=== PATIENT | female | born 1990 | race Caucasian/White ===

== ENCOUNTER 2021-10-29 19:35 | Observation (INO) | payer OTHER ==
[2021-10-29] MEDS ORDERED: MORPHINE SULFATE 10 MG/ML VIAL IM ONE (20:45)
[2021-10-29 21:09] LABS: BASOPHILS % (AUTO) 0.2 % (0.0-2.0); EOSINOPHILS % (AUTO) 0.4 % (0.0-4.0); HEMATOCRIT 38.7 % (36-48); HEMOGLOBIN 12.7 g/dL (12.0-16.0); LYMPHOCYTES % (AUTO) 10.8 % (20.5-51.5); MEAN CORPUSCULAR HEMOGLOBIN 26 pg (27-31); MEAN CORPUSCULAR HGB CONC 33 % (32-36); MEAN CORPUSCULAR VOLUME 79 fL (79.0-98.0); MONOCYTES # (AUTO) 0.3 K/uL (0.0-1.0); MONOCYTES % (AUTO) 3.3 % (1.7-9.3); NEUTROPHILS # (AUTO) 7.9 K/uL (1.8-7.7); NEUTROPHILS % (AUTO) 85.3 % (40.0-70.0); PLATELET COUNT (AUTO) 294 K/uL (130-430); RED BLOOD CELL COUNT(AUTO) 4.92 MIL/uL (4.2-6.2); WHITE BLOOD COUNT (AUTO) 9.3 K/uL (4.8-10.8)
[2021-10-29 21:23] LABS: CALCIUM 7.7 mg/dL (8.4-11.0); CREATININE 0.51 mg/dL (0.55-1.30); POTASSIUM 4.1 mmol/L (3.5-5.1)
[2021-10-29 21:28] LABS: ALBUMIN 2.8 g/dL (3.4-4.8); TOTAL BILIRUBIN 0.3 mg/dL (0.0-1.0)
[2021-10-29 22:50] LABS: BILIRUBIN,URINE NEGATIVE (NEGATIVE); BLOOD, URINE NEGATIVE (NEGATIVE); CLARITY/URINE CLEAR (CLEAR); GLUCOSE,URINE NEGATIVE (NEGATIVE); KETONES,URINE NEGATIVE (NEGATIVE); LEUKOCYTE ESTERASE ,URINE NEGATIVE (NEGATIVE); NITRITE, URINE NEGATIVE (NEGATIVE); PH,URINE 5.5 (5.0-8.0); PROTEIN URINE NEGATIVE (NEGATIVE); UROBILINOGEN,URINE 0.2 (0.2-1.0)
[2021-10-29 23:10] LABS: COLOR,URINE STRAW (YELLOW)
== END 2021-10-30 01:55 | disposition home or self-care (01) ==
LOC: SPU 19:35
PROVIDERS: ADMIT Specialist; ATTEND Specialist
DX: O26.893 Other specified pregnancy related conditions, third trimester (principal); R10.30 Lower abdominal pain, unspecified; O36.8130 Decreased fetal movements, third trimester, not applicable or unspecified; Z3A.34 34 weeks gestation of pregnancy
CPT/HCPCS: 36415; 76805; 80053; 81002; 81003; 82962; 85025; 96372; G0378 ×2; J2270

== ENCOUNTER 2021-11-08 10:14 | Observation (INO) | payer OTHER ==
[~2021-11-08] VITALS: Ht 167.6 cm; Wt 107.0 kg
== END 2021-11-08 11:40 | disposition home or self-care (01) ==
LOC: SPU 10:14
PROVIDERS: ADMIT Specialist; ATTEND Specialist
DX: Z34.83 Encounter for supervision of other normal pregnancy, third trimester (principal); Z3A.36 36 weeks gestation of pregnancy
CPT/HCPCS: 59025; G0378

== ENCOUNTER 2021-11-19 04:15 | Inpatient (IN) | payer OTHER, SELFPAY ==
[~2021-11-19] VITALS: Ht 167.6 cm; Wt 110.2 kg
[2021-11-19] MEDS ORDERED: TERBUTALINE SULFATE 1 MG/ML VIAL SUBCUT ONE (04:30)
[2021-11-19] MEDS ORDERED: NALBUPHINE HCL 10 MG/ML AMP IVP PRN (04:30)
[2021-11-19] MEDS ORDERED: OXYTOCIN/0.9 % SODIUM CHLORIDE 1,000 ML IV SCH (04:30)
[2021-11-19 04:45] VITALS: BP_SYST 139
[2021-11-19] MEDS: LR 1,000 ML IV SCH ×2 (05:00→22:30)
[2021-11-19 07:25] LABS: BASOPHILS % (AUTO) 0.4 % (0.0-2.0); EOSINOPHILS # (AUTO) 0.1 K/uL (0.0-0.4); EOSINOPHILS % (AUTO) 0.9 % (0.0-4.0); HEMATOCRIT 35.6 % (36-48); HEMOGLOBIN 11.7 g/dL (12.0-16.0); LYMPHOCYTES # (AUTO) 2.2 K/uL (1.0-5.5); LYMPHOCYTES % (AUTO) 27.1 % (20.5-51.5); MEAN CORPUSCULAR HEMOGLOBIN 26 pg (27-31); MEAN CORPUSCULAR HGB CONC 33 % (32-36); MEAN CORPUSCULAR VOLUME 79 fL (79.0-98.0); MONOCYTES # (AUTO) 0.4 K/uL (0.0-1.0); MONOCYTES % (AUTO) 5.4 % (1.7-9.3); NEUTROPHILS # (AUTO) 5.4 K/uL (1.8-7.7); NEUTROPHILS % (AUTO) 66.2 % (40.0-70.0); PLATELET COUNT (AUTO) 271 K/uL (130-430); RED BLOOD CELL COUNT(AUTO) 4.52 MIL/uL (4.2-6.2); WHITE BLOOD COUNT (AUTO) 8.2 K/uL (4.8-10.8)
[2021-11-19] MEDS ORDERED: ePHEDrine sulfate 50 MG/ML VIAL IVP PRN (07:39)
[2021-11-19] MEDS ORDERED: ROPIVACAINE HCL/PF 0.2% 200 ML ONE ×2 (07:39→22:01)
[2021-11-19] MEDS ORDERED: LR 500 ML IV ONE (07:39)
[2021-11-19] MEDS ORDERED: fentaNYL CITRATE/PF 100 MCG/2 ML AMP ONE (07:39)
[2021-11-19] MEDS ORDERED: FENT2mCg/mL-ROPIVA0.2%/NS EPID 200 ML EP SCH (07:39)
[2021-11-19] MEDS ORDERED: D5LR 1,000 ML IV PRN (14:00)
[2021-11-19] MEDS ORDERED: ACETAMINOPHEN 325 MG TABLET PO PRN (20:00)
[2021-11-19] MEDS ORDERED: LIDOCAINE PF 1% 30ML(POUR BTL) INJ ONE (21:58)
[2021-11-19] MEDS ORDERED: LIGHT MINERAL OIL 10 ML VIAL MC ONE (21:58)
[2021-11-20] MEDS ORDERED: METHYLERGONOVINE MALEATE 0.2 MG TABLET PO PRN (02:45)
[2021-11-20] MEDS ORDERED: HYDROCORTISONE 0.5% CREAM 28.4 GM CREAM.GM. TP PRN (02:45)
[2021-11-20] MEDS ORDERED: NALOXONE HCL 0.4 MG/ML AMP (NARCAN) IVP PRN (02:45)
[2021-11-20] MEDS ORDERED: WITCH HAZEL LEAF 1 MED.PAD MED.PAD TP PRN (02:45)
[2021-11-20] MEDS ORDERED: MEASLES,MUMPS&RUBELLA VACC/PF 12500 UNIT/0.5 ML VIAL SUBQ PRN (02:45)
[2021-11-20] MEDS ORDERED: OXYTOCIN/0.9 % SODIUM CHLORIDE 1,000 ML IV SCH (02:45)
[2021-11-20] MEDS ORDERED: LANOLIN 7 GM OINT. TP PRN (02:45)
[2021-11-20] MEDS ORDERED: HYDROcodone/ACETAMIN 5-325 MG TAB (NORCO/ VICODIN) PO PRN (02:45)
[2021-11-20] MEDS ORDERED: RHO(D) IMMUNE GLOBULIN/MALTOSE 1500 UNITS/1.3 ML (WINHRO) IM PRN (02:45)
[2021-11-20] MEDS ORDERED: DIPH-TET-PERTUS Vaccine 0.5 ML VIAL (ADACEL) I.M. PRN (02:45)
[2021-11-20] MEDS ORDERED: DERMOPLAST SPRAY TP PRN (02:45)
[2021-11-20] MEDS ORDERED: OXYTOCIN/0.9 % SODIUM CHLORIDE 1,000 ML IV ONE (02:45)
[2021-11-20] MEDS ORDERED: OXYCODONE/ACETAMINOPHEN 5-325 TABLET PO PRN (02:45)
[2021-11-20] MEDS ORDERED: ANUSOL 1 EA SUPP.RECT (PREPARATION H) RC PRN (02:45)
[2021-11-20] MEDS: IBUPROFEN 600 MG TABLET PO SCH ×3 (06:07→18:03)
[2021-11-20] MEDS: DOCUSATE SODIUM 100 MG CAPSULE PO SCH (08:54)
[2021-11-20] MEDS: OXYCODONE/ACETAMINOPHEN 5-325 TABLET PO PRN ×2 (14:14→20:54)
[2021-11-20] MEDS: SENNOSIDES/DOCUSATE SODIUM 1 TAB TABLET(SENOKOT-S) PO SCH (20:13)
[2021-11-20] MEDS ORDERED: TEMAZEPAM 15 MG CAPSULE PO PRN (21:00)
[2021-11-21] MEDS: IBUPROFEN 600 MG TABLET PO SCH ×3 (00:17→18:07)
[2021-11-21] MEDS: metFORMIN HCL 500 MG TABLET PO SCH ×2 (05:52→19:05)
[2021-11-21 06:59] LABS: BASOPHILS % (AUTO) 0.5 % (0.0-2.0); EOSINOPHILS # (AUTO) 0.1 K/uL (0.0-0.4); EOSINOPHILS % (AUTO) 1.3 % (0.0-4.0); HEMATOCRIT 31.4 % (36-48); HEMOGLOBIN 10.3 g/dL (12.0-16.0); LYMPHOCYTES # (AUTO) 2.2 K/uL (1.0-5.5); LYMPHOCYTES % (AUTO) 32.5 % (20.5-51.5); MEAN CORPUSCULAR HEMOGLOBIN 26 pg (27-31); MEAN CORPUSCULAR HGB CONC 33 % (32-36); MEAN CORPUSCULAR VOLUME 79 fL (79.0-98.0); MONOCYTES # (AUTO) 0.4 K/uL (0.0-1.0); MONOCYTES % (AUTO) 5.9 % (1.7-9.3); NEUTROPHILS # (AUTO) 4.1 K/uL (1.8-7.7); NEUTROPHILS % (AUTO) 59.8 % (40.0-70.0); PLATELET COUNT (AUTO) 212 K/uL (130-430); RED BLOOD CELL COUNT(AUTO) 3.99 MIL/uL (4.2-6.2); RED CELL DISTRIBUTION WIDTH 16.3 % (9.0-15.0); WHITE BLOOD COUNT (AUTO) 6.9 K/uL (4.8-10.8)
[2021-11-21] MEDS ORDERED: metFORMIN HCL 500 MG TABLET PO SCH (08:00)
--- NOTE | 2021-11-21 16:37 | NUR ---
Dietitian Recommendations [facility] standard carb-60 gm, [address] gm protein LP, RD Please refer to Nutrition Assessment for details. Signed: 11/21/21 at 1638 by Magalis CHI <Co-Signature Required> Co-Signed: 11/21/21 at [address] Addendum: 11/21/21 at 1638 by Magalis CHI Amended: Links added.
[2021-11-21] MEDS: SENNOSIDES/DOCUSATE SODIUM 1 TAB TABLET(SENOKOT-S) PO SCH (19:49)
[2021-11-21] MEDS: OXYCODONE/ACETAMINOPHEN 5-325 TABLET PO PRN (19:51)
[2021-11-22] MEDS: IBUPROFEN 600 MG TABLET PO SCH ×4 (00:03→12:20)
[2021-11-22] MEDS: DOCUSATE SODIUM 100 MG CAPSULE PO SCH (08:33)
[2021-11-22] MEDS: metFORMIN HCL 500 MG TABLET PO SCH (10:43)
== END 2021-11-22 13:44 | disposition home or self-care (01) | DRG 805 ==
LOC: SPU 04:15
PROVIDERS: ADMIT Specialist; ATTEND Specialist
PROC: 10E0XZZ Delivery of Products of Conception, External Approach (ICD-10-PCS; principal; 2021-11-20)
PROC: 10907ZC Drainage of Amniotic Fluid, Therapeutic from Products of Conception, Via Natural or Artificial Opening (ICD-10-PCS; 2021-11-20)
PROC: 3E033VJ Introduction of Other Hormone into Peripheral Vein, Percutaneous Approach (ICD-10-PCS; 2021-11-20)
PROC: 3E0R3BZ Introduction of Anesthetic Agent into Spinal Canal, Percutaneous Approach (ICD-10-PCS; 2021-11-20)
PROC: 00HU33Z Insertion of Infusion Device into Spinal Canal, Percutaneous Approach (ICD-10-PCS; 2021-11-20)
DX: O41.03X0 Oligohydramnios, third trimester, not applicable or unspecified (principal); O24.12 Pre-existing type 2 diabetes mellitus, in childbirth; Z37.0 Single live birth; O16.4 Unspecified maternal hypertension, complicating childbirth; O12.14 Gestational proteinuria, complicating childbirth; Z20.822 Contact with and (suspected) exposure to COVID-19; O99.344 Other mental disorders complicating childbirth; F41.9 Anxiety disorder, unspecified; F32.A Depression, unspecified; Z3A.38 38 weeks gestation of pregnancy
CPT/HCPCS: 36415; 81002; 82947; 82962; 85025; 86592; 86886; 86900; 86901; 94760; J2001; J2300; J2590; J3010

== ENCOUNTER 2022-03-26 21:48 | Observation (INO) | payer OTHER, BC ==
[~2022-03-26] VITALS: Ht 167.6 cm; Wt 103.0 kg
[2022-03-26 22:40] VITALS: BP_SYST 130
[2022-03-26] MEDS ORDERED: NACL 0.9% 1,000 ML IV ONE (22:45)
--- NOTE | 2022-03-26 22:46 | NUR ---
PT FROM HOME W/ C/O SMITH, BODY ACHES, CHILLS AND FEVER OF 103 FOR 3 DAYS. PT TEMP 98.9 TEMPORAL. PT TOOK HOME COVID TEST AND REPORTS IT BEING NEGATIVE. PT TACHYCARDIAC IN THE 140S MD MADE AWARE.
--- NOTE | 2022-03-26 22:54 | NUR ---
Patient to ER bed 08 to gown for evaluation. Side rails up.
--- NOTE | 2022-03-26 22:55 | NUR ---
Received report from Orquidea CARR; assuming patient care at this time.
--- NOTE | 2022-03-26 22:56 | NUR ---
Patient presents to ER with c/o headaches, fever/chills, and bodyaches x3 days. Patient reports (-)rapid covid test done at home today. Patient A/Ox4, resp even and unlabored. Patient has elevated HR 138; ER MD Lou notified. Patient placed on mechanical engineering draftsperson, in bed with side rails raised. NAD noted at this time. Will continue to monitor.
--- NOTE | 2022-03-26 22:58 | NUR ---
Radiology at bedside.
--- NOTE | 2022-03-26 23:03 | NUR ---
BIB AMB WITH TRIAGE NURSE. C/O BODY ACHES, CHILLS ABD FEVER X3 DAYS. DENIES N/V/D.
--- NOTE | 2022-03-26 23:10 | NUR ---
# 20 gauge angiocath placed to Right Wrist. Use of asceptic technique. Opsite placed over site. Blood return noted. Blood for lab drawn from site. Flushed with 10 cc of normal saline. No evidence of infiltration noted. Patient tolerated well.
--- NOTE | 2022-03-26 23:15 | NUR ---
Specimens for COVID and Influenza antigens collected and sent to lab.
[2022-03-27] MEDS ORDERED: ACETAMINOPHEN 500 MG TABLET PO ONE
[2022-03-27] MEDS ORDERED: NACL 0.9% 1,000 ML IV ONE
[2022-03-27 00:01] LABS: ANION GAP 13 (5-15); CALCIUM 8.7 mg/dL (8.4-11.0); CHLORIDE 100 mmol/L (98-107); CREATININE 0.78 mg/dL (0.55-1.30); GLUCOSE 164 mg/dL (70-99); POTASSIUM 3.3 mmol/L (3.5-5.1); UREA NITROGEN, BLOOD 12 mg/dL (8-21)
[2022-03-27 00:08] LABS: GFR AFRICAN AMERICAN 110 mL/min (>90)
[2022-03-27 00:28] LABS: HEMATOCRIT 38.2 % (36-48); HEMOGLOBIN 13.4 g/dL (12.0-16.0); MEAN CORPUSCULAR HEMOGLOBIN 28 pg (27-31); MEAN CORPUSCULAR HGB CONC 35 % (32-36); MEAN CORPUSCULAR VOLUME 81 fL (79.0-98.0); RED BLOOD CELL COUNT(AUTO) 4.74 MIL/uL (4.2-6.2); WHITE BLOOD COUNT (AUTO) 3.7 K/uL (4.8-10.8)
[2022-03-27 00:29] LABS: BASOPHILS % (AUTO) 1.2 % (0.0-2.0); EOSINOPHILS % (AUTO) 0.5 % (0.0-4.0); LYMPHOCYTES # (AUTO) 1.2 K/uL (1.0-5.5); LYMPHOCYTES % (AUTO) 31.7 % (20.5-51.5); MONOCYTES # (AUTO) 0.2 K/uL (0.0-1.0); NEUTROPHILS # (AUTO) 2.2 K/uL (1.8-7.7); NEUTROPHILS % (AUTO) 60.6 % (40.0-70.0); PLATELET COUNT (AUTO) 197 K/uL (130-430); RED CELL DISTRIBUTION WIDTH 14.9 % (9.0-15.0)
[2022-03-27] MEDS ORDERED: cefTRIAXone 1 GM IVPB PREMIX 50 ML IV ONE (00:45)
[2022-03-27 00:48] LABS: BILIRUBIN,URINE NEGATIVE (NEGATIVE); BLOOD, URINE 1+ (NEGATIVE); CLARITY/URINE CLEAR (CLEAR); COLOR,URINE YELLOW (YELLOW); GLUCOSE,URINE NEGATIVE (NEGATIVE); KETONES,URINE NEGATIVE (NEGATIVE); LEUKOCYTE ESTERASE ,URINE NEGATIVE (NEGATIVE); NITRITE, URINE NEGATIVE (NEGATIVE); PROTEIN URINE NEGATIVE (NEGATIVE); UROBILINOGEN,URINE 0.2 (0.2-1.0)
[2022-03-27 01:35] LABS: ALANINE AMINOTRANSFERASE 124 U/L (12-78); ALBUMIN 3.7 g/dL (3.4-4.8); ASPARTATE AMINOTRANSFERASE 90 U/L (10-37); TOTAL BILIRUBIN 0.3 mg/dL (0.0-1.0)
[2022-03-27 01:53] LABS: ACETONE, SERUM NEGATIVE (NEGATIVE)
[2022-03-27] MEDS ORDERED: AZITHROMYCIN 500 MG in NS 250 ML IV ONE (02:00)
[2022-03-27] MEDS ORDERED: VANCOMYCIN HCL 1,000 MG in NS 250 ML IV ONE (02:00)
[2022-03-27] MEDS ORDERED: PIPERACILLIN/TAZO 3.375 GM in NS 50 ML IV ONE (02:00)
--- NOTE | 2022-03-27 02:27 | NUR ---
Admit bed requested Patient will be admitted to care of Hao Rodriguez Admitted to M/S unit. Diagnosis Fever of Unknown Origin Inpatient Yes Observation No Orientation concerns or request close to nursing station No Covid Status Neg On vent or bipap No Isolation requirements No Needs a sitter No From Home Yes Requires Dialysis No Med Rec Completed Yes
[2022-03-27] MEDS ORDERED: POTASSIUM CHLORIDE 20 MEQ/PKT PACKET PO ONE (02:30)
[2022-03-27] MEDS ORDERED: VANCOMYCIN HCL 1000 MG/VIAL IV ONE (02:32)
[2022-03-27] MEDS ORDERED: PIPERACILLIN/TAZOBACTAM 3.375 GM/VIAL (ZOSYN) IV ONE (02:33)
[2022-03-27] MEDS ORDERED: AZITHROMYCIN 500 MG/VIAL (ZITHROMAX) IV ONE (02:34)
[2022-03-27] MEDS ORDERED: METF-518 PO (02:56)
[2022-03-27] MEDS ORDERED: INSNLG7030 SUBCUT (02:57)
[2022-03-27] MEDS ORDERED: VITD2000 PO (03:00)
[2022-03-27 04:07] VITALS: BP_SYST 94
--- NOTE | 2022-03-27 04:10 | NUR ---
LILLY PONCE PT STABLE FOR ADMIT TO ROOM #109C. TO ROOM [facility] WITH RN. REPORT TO LILLY MAHAN
--- NOTE | 2022-03-27 05:34 | NUR ---
CONSULT: CONSULT CALLED FOR DR. MATT Hayes SPOKE TO ISABEL DUARTE REASON FOR CONSULT: FEVER OF UNKNOWN ORIGIN REQUESTING CONSULT: DR. TIERRA Bui HEAD OF MATHEMATICS PHONE NUMBER: [phone]
[2022-03-27 08:00] VITALS: BP_SYST 134
[2022-03-27] MEDS ORDERED: HYDROcodone/ACETAMIN 10-325 MG TAB PO PRN (10:30)
[2022-03-27] MEDS ORDERED: NALOXONE HCL 0.4 MG/ML AMP (NARCAN) IVP PRN ×2 (10:30)
[2022-03-27] MEDS ORDERED: HYDROcodone/ACETAMIN 5-325 MG TAB (NORCO/ VICODIN) PO PRN (10:30)
[2022-03-27] MEDS ORDERED: ACETAMINOPHEN 325 MG TABLET PO PRN (10:30)
[2022-03-27] MEDS ORDERED: ONDANSETRON HCL 4 MG/2 ML VIAL IVP PRN (10:30)
[2022-03-27] MEDS ORDERED: GLUCOSE (DEXTROSE) ORAL GEL -Adults PO PRN (11:00)
[2022-03-27] MEDS ORDERED: D5W 1,000 ML IV PRN (11:00)
[2022-03-27] MEDS ORDERED: LORazepam 1 MG TABLET PO PRN (11:00)
[2022-03-27] MEDS ORDERED: DEXTROSE 50%-WATER 50 ML DISP.SYRIN IVP PRN (11:00)
[2022-03-27 12:00] VITALS: BP_SYST 143
[2022-03-27] MEDS ORDERED: metFORMIN HCL 500 MG TABLET PO SCH (12:00)
[2022-03-27] MEDS: INSULIN REGULAR, HUMAN 100 UNITS/ML, 10 ML VIAL (humuLIN R) SUBCUT PRN ×3 (12:09→21:59)
[2022-03-27] MEDS ORDERED: NORMAL SALINE 5 ML DISP.SYRIN IVF SCH (14:00)
[2022-03-27] MEDS: NORMAL SALINE 5 ML DISP.SYRIN IVF SCH ×2 (14:51→22:10)
[2022-03-27 16:00] VITALS: BP_SYST 140
[2022-03-28] MEDS: INSULIN REGULAR, HUMAN 100 UNITS/ML, 10 ML VIAL (humuLIN R) SUBCUT PRN (06:36)
[2022-03-28 07:39] LABS: BASOPHILS % (AUTO) 0.7 % (0.0-2.0); HEMATOCRIT 37.1 % (36-48); HEMOGLOBIN 12.8 g/dL (12.0-16.0); LYMPHOCYTES # (AUTO) 1.3 K/uL (1.0-5.5); LYMPHOCYTES % (AUTO) 36.1 % (20.5-51.5); MEAN CORPUSCULAR HEMOGLOBIN 28 pg (27-31); MEAN CORPUSCULAR HGB CONC 35 % (32-36); MEAN CORPUSCULAR VOLUME 81 fL (79.0-98.0); MONOCYTES # (AUTO) 0.3 K/uL (0.0-1.0); MONOCYTES % (AUTO) 8.1 % (1.7-9.3); NEUTROPHILS # (AUTO) 1.9 K/uL (1.8-7.7); NEUTROPHILS % (AUTO) 54.1 % (40.0-70.0); PLATELET COUNT (AUTO) 191 K/uL (130-430); RED BLOOD CELL COUNT(AUTO) 4.59 MIL/uL (4.2-6.2); RED CELL DISTRIBUTION WIDTH 14.5 % (9.0-15.0); WHITE BLOOD COUNT (AUTO) 3.6 K/uL (4.8-10.8)
[2022-03-28 08:00] VITALS: BP_SYST 135
[2022-03-28] MEDS ORDERED: CHOLECALCIFEROL (VITAMIN D3) 2,000 UNIT TABLET PO SCH (09:00)
[2022-03-28 09:26] LABS: ALBUMIN 3.4 g/dL (3.4-4.8); CALCIUM 8.5 mg/dL (8.4-11.0); CREATININE 0.71 mg/dL (0.55-1.30); PHOSPHORUS 3.7 mg/dL (2.7-4.5); POTASSIUM 3.9 mmol/L (3.5-5.1); TOTAL BILIRUBIN 0.4 mg/dL (0.0-1.0)
[2022-03-28 10:28] VITALS: BP_SYST 138
--- NOTE | 2022-03-28 11:00 | NUR ---
patient discharged home at this time in the company of spouse. instructions given. both verbalized understanding.
--- NOTE | 2022-04-30 12:19 | NUR ---
IV ADMINISTRATION END TIME (Observation Patients ONLY): Late entry IV infusion of Azithromycin started at 04:35 on 03/27/22 and ended at 05:35 on 03/27/22.
== END 2022-03-28 10:50 | disposition home health service (06) ==
LOC: SED 21:48 → SMU 03-27 02:20 → INTOOBSV 03-27 02:20 → SMU 03-27 03:51
PROVIDERS: ADMIT Preventive Medicine Preventive Medicine/Occupational Environmental Medicine; ATTEND Preventive Medicine Preventive Medicine/Occupational Environmental Medicine
DX: A41.9 Sepsis, unspecified organism (principal); Z20.822 Contact with and (suspected) exposure to COVID-19; E11.65 Type 2 diabetes mellitus with hyperglycemia; E87.6 Hypokalemia; D72.819 Decreased white blood cell count, unspecified; E87.2 Acidosis; R74.01 Elevation of levels of liver transaminase levels; E87.1 Hypo-osmolality and hyponatremia; Z79.899 Other long term (current) drug therapy
CPT/HCPCS: 80053 ×2; 82009; 85025 ×2; 87040; 84484; 93005; 71045; 99291; 96361; 83605 ×2; 87804 ×2; 87426; 96372 ×2; 96375; 82962 ×2; 87086; 36415 ×2; 96367 ×2; 96365; 96366; 96368; 81003; 83735; 84100; J7030; J0456; J0696; J1815; J2543; J3370; G0378 ×2